=== PATIENT | female | born 1975 | race Caucasian/White ===

== ENCOUNTER 2025-02-14 21:15 | Emergency (ER) | payer OTHER, SELFPAY ==
[2025-02-14] VITALS (12 sets, daily range): BP systolic 115–146; BP diastolic 61–84; PULSE 57–73; TEMP 36.7; O2SAT 97–100; BMI 37.6
--- NOTE | 2025-02-14 21:30 | ECG_ITS ---
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
--- OUTSIDE RECORDS SUMMARY | 2025-02-14 21:33 | XMS_ITS | Clinical Summary ---
Author Organization [facility] Healthcare Address [address] [place] [address] Care Team Providers Care Night Shift Manager Name Role Phone Unavailable Primary Care Provider Unavailabl e Allergies Active Allergy Reactions Criticality Noted Date Comments Moxifloxacin Shortness of breath High 12/01/2008 Other Reaction(s): Unknown Medications levothyroxine (Synthroid, Levoxyl) 88 MCG tablet Take 88 mcg by mouth Daily Active PARoxetine CR (Paxil-CR) 37.5 MG 24 hr tablet Take 37.5 mg by mouth in the morning. 3 Active fluocinonide (Lidex) 0.05 % external solutionIndicatio ns:Lichen planopilaris Apply to affected areas on the scalp, up to twice a day when flared, 30 day supply 60 mL 11 4 Active fluocinonide (Lidex) 0.05 % ointmentIndicatio ns:Psoriasis vulgaris Apply to affected areas, up to twice a day when flared, do not use one the face, groin, or underarms, 30 day supply 60 g 11 4 Active Active Problems No known active problems Family History Medical History Relation Name Comments Cancer Father Heart disease Father Hypertension Father Heart disease Maternal Grandfather Cancer Maternal Grandmother Diabetes Mother Heart disease Paternal Grandfather Relation Name Status Comments Daughter Alive Father Alive Maternal Grandfather Maternal Grandmother Mother Alive Other Spouse Alive Paternal Grandfather Paternal Grandmother Sibling Alive Son Alive Social History Tobacco Use Types Packs/Day Years Used Date Smoking Tobacco: Never Smokeless Tobacco: Never Tobacco Cessation:Counseling Given: Not Answered Alcohol Use Standard Drinks/Week Comments Never 0 (1 standard drink = 0.6 oz pur e alcohol) Comments Unknown Sex and Gender Information Value Date Recorded Sex Assigned at Not on file Legal Sex Female 7:12 PM EDT Gender Identity Not on file Sexual Orientation Not on file Last Filed Vital Signs Vital Sign Reading Time Taken Comments Blood Pressure 126/77 01/02/2018 12:00 PM EDT Pulse - - Temperature - - Respiratory Rate - - Oxygen Saturation - - Inhaled Oxygen Concentration - - Weight 88.4 kg (194 lb 12.8 oz) 018 12:00 PM EDT Height 167.6 cm (5' 6 ) 01/02/2018 12:0 0 PM EDT Body Mass Index 31.44 01/02/2018 12:00 PM EDT Plan of Treatment Health Maintenance Due Date Last Done Comments CT Colonography 1975 Colonoscopy 1973 Colorectal Cancer Screening 1975 FIT-DNA 1975 FIT 1975 FOBT 1975 Sigmoidoscopy 1975 Pap Smear 1994 Cervical Cancer Screening 2003 HPV/Cotest 2003 Mammogram 2013 Influenza Vaccine (#1) 2025 3, 06/19/2022, 04/20/2021, Additional history exists Insurance [employer]
--- OUTSIDE RECORDS SUMMARY | 2025-02-14 21:33 | XMS_ITS | Clinical Summary ---
Author Organization [facility] Address [address], [address] [place] [address] Care Team Providers Care Tobacco Stripper Hand Name Role Phone Troy Santillan Primary Care Provider [phone] Allergies Active Allergy Reactions Criticality Noted Date Comments Moxifloxacin 09/20/2015 Moxifloxacin Shortness Of Breath High 06/29/2017 Environmental/Seasonal 09/19/2021 Other reaction(s): sinus Other reaction(s): allergies Medications levothyroxine (SYNTHROID) 88 MCG tablet Take 88 mcg by mouth Daily Active Cholecalciferol (VITAMIN D3) 2000 UNITS CAPS Take by mouth Activ e ALPRAZolam (XANAX) 0.25 MG tablet Take 0.25 mg by mouth 3 times daily as needed for Sleep Active estradiol (ESTRACE) 2 MG tablet Take 2 mg by mouth daily Active ALBUTEROL IN Inhale into the lungs Active PARoxetine (PAXIL CR) 37.5 MG extended release tablet take 1 tablet by mouth once daily 2 Active azithromycin (ZITHROMAX) 250 MG tabletIndications :Acute bronchitis with bronchospasm Take 2 tabs by mouth on Day 1, then 1 tab by mouth on Days 2-5. 6 tablet 2 Active predniSONE (DELTASONE) 20 MG tabletIndications :Acute bronchitis with bronchospasm Take 2 tablets by mouth daily x 5 days. Take with food. 10 tablet 2 Active albuterol sulfate HFA 108 (90 Base) MCG/ACT inhalerIndication s:Acute bronchitis with bronchospasm Inhale 1-2 puffs every 6 hrs as needed for wheezing or shortness of breath. 18 g 05/03/202 2 Active Active Problems Problem Noted Date Diagnosed Date Cystitis 09/19/2021 Episodic mood disorder 09/19/2021 Obesity with body mass index 30 or greater 09/19 Panic disorder without agoraphobia 09/19/2021 Panic disorder 09/19/2021 Simple obesity 09/19/2021 Vitamin D deficiency 11/03/2009 Hypocalcemia 12/01/2008 Goiter 12/01/2008 Hypothyroidism 12/01/2008 Other psoriasis 12/01/2008 Social History Tobacco Use Types Packs/Day Years Used Date Smoking Tobacco: Never Smokeless Tobacco: Never Alcohol Use Standard Drinks/Week Comments No 0 (1 standard drink = 0.6 oz pur e alcohol) Comments No Sex and Gender Information Value Date Recorded Sex Assigned at Not on file Legal Sex Female 5:54 PM EST Gender Identity Not on file Sexual Orientation Not on file Last Filed Vital Signs Vital Sign Reading Time Taken Comments Blood Pressure 134/82 09/19/2021 2:30 PM EDT Pulse 70 09/19/2021 2:30 PM EDT Temperature 36.8 C (98.3 F) 09/19/2021 2:30 PM EDT Respiratory Rate 18 09/19/2021 2:30 PM EDT Oxygen Saturation 99% 09/19/2021 2:30 PM EDT Inhaled Oxygen Concentration - - Weight 101.6 kg (224 lb) 09/19/2021 2:30 PM EDT Height 170.2 cm (5' 7 ) 09/19/2021 2:30 PM EDT Body Mass Index 35.08 09/19/2021 2:30 PM EDT Plan of Treatment Not on file Care Teams Tobacco Stripper Hand Relationship Specialty Start Date End Date Troy Santillan DO PCP - General Family Medicine 06/29/17
--- NOTE | 2025-02-14 21:56 | ED.CHESTPAI1 ---
HPI - Chest Pain General Chief Complaint: Chest Pain Stated Complaint: CHEST PAIN & SHAKY Time Seen by Provider: 02/14/25 21:17 Source: patient Mode of arrival: walk-in Limitations: no limitations History of Present Illness HPI narrative: This 50-year-old female with a history of Gemini's thyroiditis and history of panic attacks for which she is on Paxil presents for evaluation of 3 days of intermittent chest pain, feeling like she cannot swallow with a foreign body sensation in her chest and numbness and tingling as well as mild shortness of breath. The patient states she works at [employer] and is currently working more than her assigned job because of work for shortages. She states for the past 3 days she has been having this sensation. She was driving home from work the other day and felt like she was going to pass out. The patient states that tonight she was getting ready for bed and laid down and felt like she was going to . She is not currently having any chest pain. When she does have chest pain it is nonradiating and in the center of her chest. She denies that she is on any weight loss medications. She does not drink or smoke. She does not have a history of any cardiac disease diabetes or hypertension. She has been on Paxil for around 9 years. She is not having any abdominal pain or back pain. She has no focal weakness numbness or tingling. She does not have any confusion slurred speech or change in her vision. No lower extremity pain or swelling. Related Data Allergies Allergy/AdvReac Type Severity Reaction Status Date / Time moxifloxacin (From Avelox) AdvReac Severe Unknown Verified 02/14/25 21:42 Review of Systems ROS Status of ROS 10 or more systems reviewed and unremarkable except as noted in history and below PFSH PFSH Social History Little interest or pleasure in doing things: not at all Feeling down, depressed, or hopeless: not at all Exam Narrative Exam Narrative: Vital signs and Nursing Notes reviewed: Patient is afebrile with a normal pulse, blood pressure is mildly elevated 146/84, she is not hypoxic with pulse ox of 100% on room air General: Awake, alert, oriented, slightly anxious overweight female, GCS 15, no respiratory distress HEENT: Normocephalic atraumatic, mucous membranes are moist and pink, eyes are clear, normal conjunctiva, vision is grossly intact, posterior pharynx is normal in appearance. Chest: Lungs are clear to auscultation with good air entry, there is no wheezing rhonchi or rales appreciated no accessory muscle use, patient is speaking in complete sentences-no chest wall tenderness to palpation CVS: Regular rate and rhythm S1-S2, no murmurs rubs or gallops, pulses are brisk and equal bilaterally ABD: Soft, nondistended, nontender, no rebound guarding or rigidity, bowel sounds are normal, no pulsatile masses appreciated Extremities: Moving all extremities, no lower extremity tenderness or swelling noted, negative Homans' sign, pulses are brisk and equal bilaterally Skin: Normal in appearance without rash,pallor, petechiae or purpura Neuro: No focal deficits Psych: Appears mildly anxious, admits to history of panic attacks Constitutional Vital Signs, click to edit/add: Last Vital Signs Temp 98.1 F 02/14/25 21:26 Pulse 70 02/14/25 21:26 Resp 16 02/14/25 21: BP 146/84 H 02/14/25 21:26 Pulse Ox 100 02/14/25 21:26 O2 Del Method Room Air 02/14/25 21:26 Course Vital Signs Vital signs: Vital Signs Temperature 98.1 F 02/14/25 21:26 Pulse Rate 70 02/14/25 21:26 Respiratory Rate 16 02/14/25 21:26 Blood Pressure 146/84 H 02/14/25 21:26 Pulse Oximetry 100 02/14/25 21:26 Oxygen Delivery Method Room Air 02/14/25 21:26 Temperature 98.1 F 02/14/25 21:26 Pulse Rate 70 02/14/25 21:26 Respiratory Rate 16 02/14/25 21:26 Blood Pressure 146/84 H 02/14/25 21:26 Pulse Oximetry 100 02/14/25 21:26 Oxygen Delivery Method Room Air 02/14/25 21:26 MDM - Chest Pain MDM Narrative Medical decision making narrative: This 50-year-old female with a history of Gemini's thyroiditis and panic attacks presents for evaluation of episodes of shortness of breath with feeling that she cannot swallow, globus pharyngeus, episodes of numbness and tingling and tonight while trying to go to bed stated that she felt dizzy like she may . She was ambulatory to room 7 upon arrival. EKG was done upon arrival which is a sinus rhythm at 67 bpm with a RSR pattern in lead V1 and V2 otherwise normal EKG. She did not wish to have an IV placed and routine labs were ordered. She has a normal white count and hemoglobin. Electrolytes are normal. Creatinine is minimally elevated at 1.17. Troponin is normal. D-dimer is normal. Her TSH is quite elevated at 9.899. She was medicated emergency department with aspirin, Zofran for nausea and 5 mg of oral Valium. On reevaluation she states she is feeling better. The results of her labs were discussed with her. She states she has not had her thyroid checked in over a year and has an appointment with her doctor in 2 weeks. I suggested she call for an appointment sooner if possible. She states that when her thyroid is off she has symptoms consistent with this. She is otherwise feeling better and stable for discharge at this time. She will be discharged home with her and daughter. She was encouraged return emergency department for any worsening symptoms, shortness of breath dizziness diaphoresis ongoing chest pain or any concerns. She was offered admission but prefers to be discharged home. She states she will call her doctor tomorrow for an updated appointment. Lab Data Attestation: I reviewed the patient's lab results. Labs: Lab Results 02/14/25 Range/Units 21:52 WBC 6.8 (4.0-11.0) 10^3/uL RBC 4.46 (4.20-5.40) 10^6/uL Hgb 13.2 (12.0-16.0) g/dL Hct 40.3 (36.0-48.0) % MCV 90.4 (81.0-99.0) fL MCH 29.6 (26.7-34.0) pg MCHC 32.8 (29.9-35.2) g/dL RDW 12.5 (11.0-15.0) % Plt Count 166 (150-450) 10^3/uL MPV 11.5 (9.5-13.5) fL Neut % (Auto) 66.0 (43.0-75.0) % Lymph % (Auto) 22.7 (20.5-60.0) % [place] % (Auto) 8.4 (1.7-12.0) % Eos % (Auto) 2.1 (0.9-7.0) % Baso % (Auto) 0.4 (0.2-2.0) % Neut # (Auto) 4.5 (1.4-6.5) 10^3/uL Lymph # (Auto) 1.5 (1.2-3.8) 10^3/uL [place] # (Auto) 0.6 (0.3-0.8) 10^3/uL Eos # (Auto) 0.1 (0.0-0.7) 10^3/uL Baso # (Auto) 0.0 (0.0-0.1) 10^3/uL Abs Immat Gran (auto) 0.03 (0.00-0.03) 10^3/uL Imm/Tot Granulo (auto) 0.4 (0.0-0.5) % D-Dimer 0.38 (<=0.59) mg/L FEU Sodium 138 (136-145) mmol/L Potassium 3.8 (3.5-5.1) mmol/L Chloride 101 (98-107) mmol/L Carbon Dioxide 28.0 (21.0-32.0) mmol/L Anion Gap 12.8 BUN 15.0 (7.0-18.0) mg/dL Creatinine 1.17 H (0.55-1.02) mg/dL Est GFR ( Amer) 59 L (>=60 mL/min/1.73m^2) Est GFR (Non-Af Amer) 49 L (>=60 mL/min/1.73m^2) BUN/Creatinine Ratio 12.8 Glucose 100 (74-106) mg/dL Calcium 9.3 (8.5-10.1) mg/dL Total Bilirubin 0.5 (0.2-1.0) mg/dL AST 21 (15-37) U/L ALT 24 (14-59) U/L Alkaline Phosphatase 117 H (46-116) U/L Troponin I High Sens <4.0 L (4.0-51.3) pg/mL Total Protein 8.4 H (6.4-8.2) g/dL Albumin 3.8 (3.4-5.0) g/dL Globulin 4.6 g/dL Albumin/Globulin Ratio 0.8 TSH & Free T4 Interp 9.899 H (0.358-3.740) uIU/mL ECG Data Attestation: I personally reviewed and interpreted this ECG as follows: (Sinus rhythm at 67 bpm, RSR in lead V1 V2 consistent with right ventricular conduction delay otherwise normal EKG) Heart Score History: Slightly/Non-Suspicious ECG: Normal Age: >45-<65 years Risk Factors: 1 or 2 Risk Factors Troponin: <Normal Limit Total Heart Score Recommendations & Risks:: 2 Discharge Plan Discharge Chief Complaint: Chest Pain Clinical Impression: Atypical chest pain, Anxiety, generalized, Gemini's disease, Hypothyroidism Patient Disposition: Home, Self-Care Time of Disposition Decision: 22:49 Condition: Good Print Language: [place] Instructions: Hypothyroidism (ED), Generalized Anxiety Disorder (ED), Noncardiac Chest Pain (ED), Anxiety (ED) Referrals: Griselda Hernandez DO [Primary Care Provider] - 1 week
[2025-02-14 22:09] LABS: Hematocrit 40.3 % (36.0-48.0); Hemoglobin 13.2 g/dL (12.0-16.0); Immature Granulocytes Abs Auto 0.03 10^3/uL (0.00-0.03); Immature Granulocytes Pct Auto 0.4 % (0.0-0.5); Lymphocytes Absolute Auto 1.5 10^3/uL (1.2-3.8); Mean Corpuscular HGB Conc 32.8 g/dL (29.9-35.2); Mean Corpuscular Hemoglobin 29.6 pg (26.7-34.0); Mean Corpuscular Volume 90.4 fL (81.0-99.0); Platelet Count 166 10^3/uL (150-450); Red Blood Count 4.46 10^6/uL (4.20-5.40); White Blood Count 6.8 10^3/uL (4.0-11.0)
[2025-02-14] MEDS: ASPIRIN 81 MG TAB.CHEW 324 MG PO (22:14)
[2025-02-14] MEDS: ONDANSETRON 4 MG RAPDIS TABLET SL (22:15)
[2025-02-14] MEDS: DIAZEPAM 5 MG TABLET PO (22:15)
[2025-02-14 22:25] LABS: Alanine Aminotransferase 24 U/L (14-59); Albumin Globulin Ratio 0.8; Albumin Level 3.8 g/dL (3.4-5.0); Alkaline Phosphatase 117 U/L (46-116); Anion Gap 12.8; Aspartate Amino Transferase 21 U/L (15-37); Blood Urea Nitrogen 15.0 mg/dL (7.0-18.0); Calcium 9.3 mg/dL (8.5-10.1); Carbon Dioxide 28.0 mmol/L (21.0-32.0); Chloride 101 mmol/L (98-107); Estimated GFR (African America 59 (>=60 mL/min/1.73m^2); Estimated GFR (Non-African Ame 49 (>=60 mL/min/1.73m^2); Globulin 4.6 g/dL; Glucose 100 mg/dL (74-106); Potassium 3.8 mmol/L (3.5-5.1); Sodium 138 mmol/L (136-145); Total Protein 8.4 g/dL (6.4-8.2)
[2025-02-14 22:35] LABS: TSH W/ REFLEX FT4 9.899 uIU/mL (0.358-3.740)
== END 2025-02-14 23:16 | disposition home or self-care (01) ==
PROVIDERS: Emergency Provider Emergency Medicine
DX: R07.89 Other chest pain (principal); F41.1 Generalized anxiety disorder; E06.3 Autoimmune thyroiditis; F41.0 Panic disorder [episodic paroxysmal anxiety]; Z79.899 Other long term (current) drug therapy; E03.9 Hypothyroidism, unspecified
CPT/HCPCS: 36415; 80053; 84439; 84443; 84484; 85025; 85378; 93005; 99284; Q0162